=== PATIENT | female | born 1965 | race Caucasian/White ===

== ENCOUNTER 2019-11-10 08:22 | Emergency (ER) | payer OTHER, SELFPAY ==
--- NOTE | 2019-11-10 09:01 | ED.URI ---
HPI - URI/Sore Throat General Chief Complaint: Upper Respiratory Infection Stated Complaint: Cold/Cough Time Seen by Provider: 11/10/19 09:01 Source: patient and RN notes reviewed History of Present Illness HPI Narrative: Patient is a 54-year-old female that presents the urgent care with complaints of cold and cough for 5 days. Patient states that the chest congestion and upper airway congestion started last night and she has been using Advair and her albuterol inhaler as needed for wheezing and cough. Denies any fever, nausea, vomiting. Patient is also used NyQuil without much relief. No other acute complaints. No acute distress noted. Patient read the plan of care. Related Data Home Medications Medication Instructions Recorded Confirmed albuterol sulfate 1 inh INHALATION QID PRN 11/10/19 11/10/19 fluticasone propion-salmeterol 1 inh INHALATION Q12H 11/10/19 11/10/19 [Advair Diskus] Allergies Allergy/AdvReac Type Severity Reaction Status Date / Time adhesive Allergy Unknown Rash Unverified 11/10/19 09:17 venom-wasp Allergy Unknown Unknown Verified 11/10/19 09:17 Review of Systems Review of Systems: Narrative: CONSTITUTIONAL: Denies fever, chills, or sweats. EYES: Denies visual changes, redness, or discharge. ENT: Reports of sinus congestion and postnasal drainage CARDIOVASCULAR: Denies chest pain, palpitations, or edema. RESPIRATORY: Reports of cough with intermittent wheezing GASTROINTESTINAL: Denies abdominal pain, nausea, vomiting, or diarrhea. GENITOURINARY: Denies dysuria or hematuria. SKIN: Denies rash or itching. MUSCULOSKELETAL: Denies back pain, joint pain, or myalgia. NEUROLOGIC: Denies headache, numbness, or weakness. All other systems reviewed are negative, except as documented in HPI. [facility] Family History Family History (Updated 04/04/18 @ 07:57 by DOCTOR UNKNOWN) Mother Diabetes mellitus Hypertension Family history of cardiovascular disease Family history of cardiac disorder Family history of Parkinson's disease Family history of atrial fibrillation Father Hypertension Grandparent Malignant neoplasm of prostate Family history of malignant neoplasm of ovary Social History Social History Smoking status: Never smoker Alcohol intake: current Comments At the time of my signature, I reviewed and agree with the nursing past medical, surgical, social, and family history. There is no relevant family history pertinent to the patient complaint. Exam Narrative: Exam Narrative: GENERAL: This is a well-nourished, well-developed patient, in no apparent distress. HEAD: normocephalic, atraumatic. EYES: PERRL. Sclera clear/white. Vision is grossly intact. EARS: External ears normal, auditory canals clear and without drainage, TMs normal without perforation. Hearing grossly intact. NOSE: External nose normal with no obvious nasal discharge, nares without redness, clear rhinorrhea. THROAT: Mucous membranes moist, posterior pharynx clear. Mild postnasal drainage NECK: Neck supple CARDIOVASCULAR: Regular rate and rhythm without murmurs, gallops, or rubs. RESPIRATORY: Clear to auscultation. Breath sounds equal bilaterally. No wheezes, rales, or rhonchi. SKIN: warm, intact with no suspicious lesions or rash, good texture and turgor. NEURO: awake, alert, and oriented to person, place and time. There were no obvious focal neurologic abnormalities. EXTREMITIES: No clubbing, cyanosis, or edema. Course Vital Signs Vital signs: Vital Signs Temperature 99.3 F 11/10/19 09:03 Pulse Rate 94 11/10/19 09:03 Respiratory Rate 18 11/10/19 09:03 Blood Pressure 137/83 11/10/19 09:03 Pulse Oximetry 100 11/10/19 09:03 Temperature 99.3 F 11/10/19 09:03 Pulse Rate 94 11/10/19 09:03 Respiratory Rate 18 11/10/19 09:03 Blood Pressure 137/83 11/10/19 09:03 Pulse Oximetry 100 11/10/19 09:03 Reviewed MDM - URI/Sore Throat MDM Narrative Medical decision making narrativ
[2019-11-10 09:03] VITALS: BP 137/83; PULSE 94; RESP 18; TEMP 37.4; O2SAT 100
== END 2019-11-10 09:25 | disposition home or self-care (01) ==
PROVIDERS: Emergency Provider Nurse Practitioner Family; PCP Family Medicine
DX: J40 Bronchitis, not specified as acute or chronic (principal); J45.909 Unspecified asthma, uncomplicated; E06.3 Autoimmune thyroiditis
CPT/HCPCS: 99213; G0463

== ENCOUNTER → 2020-04-22 12:18 | Outpatient (CLI) | payer OTHER, SELFPAY ==
--- NOTE | ~2020-04-22 | DEXA_ITS ---
Bone Density Report Name: Lilly Cooper Age: 55 Sex: Female Ethnicity: White Date of : 1965 Indication: postmenopausal; screening for osteoporosis; asthma or emphysema; hysterectomy; Referring Provider: GIOVANI THOMAS Study: Bone densitometry was performed. Exam Date: April 22, 2020 Accession number: [id number] Bone Density: Region BMD T-score Z-score Classification AP Spine (L1-L4) 0.864 -1.7 -0.6 Osteopenia Femoral Neck (Left) 0.662 -1.7 -0.6 Osteopenia Total Hip (Left) 0.740 -1.7 -1.0 Osteopenia Femoral Neck (Right) 0.673 -1.6 -0.5 Osteopenia Total Hip (Right) 0.735 -1.7 -1.0 Osteopenia Total Hip Mean 0.738 -1.7 -1.0 Osteopenia World Health Organization criteria for BMD impression classify patients as: Normal (T-score at or above -1.0), Osteopenia (T-score between -1.0 and -2.5), or Osteoporosis (T-score at or below -2.5). 10-year Fracture Risk(1): Major Osteoporotic Fracture 6.6% Hip Fracture 0.5% Reported Risk Factors: [place] (), Neck BMD=0.662, BMI=31.5 (1) FRAX(R) Version 3.08. Fracture probability calculated for an untreated patient. Fracture probability may be lower if the patient has received treatment. Clinical Information Provided by Patient: Has used the following medications: Vitamin D, multi vit Has the following medical conditions: Asthma or Emphysema, Hysterectomy Patient maximum height was 62 Menopause Age: 40 Does not regularly consume dairy products Drinks caffeinated beverages Onset of menses at age 12 Number of children 0 Impression: The patient has low bone mass, based on the Total Spine T-score. The patient has an estimated ten-year risk of hip fracture of 0.5% and an estimated ten-year risk of major fracture of 6.6%, based on the WHO FRAX algorithm. Discussion: BONE DENSITY IS LOW AT ONE OR MORE SKELETAL SITES. This patient's lowest T-score is low at one or more skeletal sites. It meets the World Health Organization's (WHO) criteria for ?low bone mass? (T-score between -1.0 and -2.5). The patient's 10-year risk of fracture as calculated by FRAX is less than the threshold where pharmacological therapy is recommended by the National Osteoporosis Foundation (NOF). However, all treatment decisions require clinical judgment and consideration of individual patient factors, including patient preferences, comorbidities, previous drug use, risk factors not captured in the FRAX model (e.g., frailty, falls, vitamin D deficiency, increased bone turnover, interval significant decline in bone density) and possible under or overestimation of fracture risk by FRAX. The patient should follow a healthful lifestyle (good nutrition with adequate calcium and vitamin D, and appropriate weight-bearing exercise). Follow-Up: Consider repeating this study in 2 to 3 year
--- NOTE | ~2020-04-22 | MM_ITS ---
EXAMINATION: MM screening [place] BI w carie HISTORY: Screening TECHNIQUE: Craniocaudal and mediolateral oblique 3-D tomosynthesis images were obtained and synthetic 2-D images were generated. CAD analysis was submitted and interpreted. COMPARISON: Comparison to multiple prior studies sequentially, with oldest reviewed study dated 03/2013. BREAST PARENCHYMAL COMPOSITION: There are scattered areas of fibroglandular density. FINDINGS: There is no evidence of suspicious mass, calcification, or architectural distortion to sugg est malignancy in either breast. There has been no suspicious interval change. IMPRESSION: 1. No mammographic evidence of malignancy. 2. Recommend routine screening mammography in one year. BI-RADS Category 1: Negative Reviewed, dictated and finalized at location A.
== END ==
PROVIDERS: Visit Provider Family Medicine
DX: Z12.31 Encounter for screening mammogram for malignant neoplasm of breast (principal); Z78.0 Asymptomatic menopausal state; M85.89 Other specified disorders of bone density and structure, multiple sites
CPT/HCPCS: 77063; 77067; 77080

== ENCOUNTER 2020-06-05 01:00 | Outpatient (CLI) | payer OTHER, SELFPAY ==
[2020-06-05 18:28] LABS: SARS-CoV-2 RNA PCR Negative
== END 2020-06-05 01:01 | disposition home or self-care (01) ==
LOC: ANHCOVIDDT 01:00
PROVIDERS: PCP Family Medicine; Visit Provider Internal Medicine Gastroenterology
DX: Z20.828 Contact with and (suspected) exposure to other viral communicable diseases (principal)
CPT/HCPCS: 87635; C9803; U0003

== ENCOUNTER 2020-06-07 03:45 | Day surgery (SDC) | payer OTHER, SELFPAY ==
[2020-05-29 14:17] VITALS: BMI 30.2
[2020-06-07 07:54] VITALS: BP 122/84; PULSE 73; RESP 16; TEMP 36.2; O2SAT 99; BMI 30.9
--- NOTE | 2020-06-07 08:06 | PM.HPGS ---
History of Present Illness History of Present Illness Consent: Risks, benefits, and alternatives have been discussed and questions answered. Patient agrees to proceed with procedure. Chief complaint: Neoplasm Screening Narrative: Lilly Cooper is a 55 year old female here for colon cancer screening [facility] Past Medical History Medical History Calculus of ureter Carpal tunnel syndrome Cubital tunnel syndrome Endometriosis, site unspecified FH: stroke Family History Family History Mother Diabetes mellitus Hypertension Family history of cardiovascular disease Family history of cardiac disorder Family history of Parkinson's disease Family history of atrial fibrillation Father Hypertension Grandparent Malignant neoplasm of prostate Family history of malignant neoplasm of ovary Social History Social History Smoking status: Never smoker Alcohol intake: current Drinks per week: 3 Substance use: never Substance use type: does not use Living arrangements: alone Spiritual care concerns: No Meds Home Medications and Allergies Home Medications Medication Instructions Recorded Confirmed Type levothyroxine 88 mcg tablet 88 mcg PO DAILY #90 tablet 06/04/20 06/07/20 Rx Allergies Allergy/AdvReac Type Severity Reaction Status Date / Time adhesive Allergy Unknown Rash Verified 06/07/20 07:50 venom-wasp Allergy Unknown Difficulty Verified 06/07/20 07:50 Breathing Vital Signs Vital Signs - 24 hr 06/07/20 07:54 Temperature 36.2 C L Pulse Rate 73 Respiratory Rate 16 Blood Pressure 122/84 Pulse Oximetry 99 Exam Resp: Auscultation: clear to auscultation bilaterally Cardio: Rate: regular rate Rhythm: regular rhythm GI: GI Palp: Yes Soft to palpation and No Tenderness to palpation present (GI) Assessment and Plan Assessment and plan (1) Colon cancer screening: Code(s): Z12.11 - Encounter for screening for malignant neoplasm of colon Status: Acute Assessment and Plan: Colonoscopy with possible biopsy or polypectomy or cautery or injection of substances.
[2020-06-07] MEDS: LACTATED RINGERS 1,000 ML 150 ML IV CONT (08:14)
--- NOTE | 2020-06-07 08:50 | WPDANESEPPF ---
Anes - Initial Pre Proc Eval Procedure: Operation Date: 06/07/20 09:00 Proposed Procedures p Screening Colonoscopy - Martinez Gordon MD Date/Time: 06/07/20 08:50 Surgeon: Martinez Gordon MD Pre Op Diagnosis: Neoplasm Screening Patient Data Age: 55 Gender: F Height: 5 ft 2 in Weight: 76.8 kg Last Vital Signs Temp 97.2 F L 06/07/20 07:54 Pulse 73 06/07/20 07:54 Resp 16 06/07/20 07:54 BP 122/84 06/07/20 07:54 Pulse Ox 99 06/07/20 07:54 Allergies Allergy/AdvReac Type Severity Reaction Status Date / Time adhesive Allergy Unknown Rash Verified 06/07/20 07:50 venom-wasp Allergy Unknown Difficulty Verified 06/07/20 07:50 Breathing Home Medications Medication Instructions Recorded Confirmed Type levothyroxine 88 mcg tablet 88 mcg PO DAILY #90 tablet 06/04/20 06/07/20 Rx Patient hx anesthesia problems: none Family hx anesthesia problems: none PMFSH Past Medical History Medical History (Updated 06/07/20 @ 08:49 by Say Guillen MD) Calculus of ureter Carpal tunnel syndrome Cubital tunnel syndrome Endometriosis, site unspecified FH: stroke Hypothyroid Family History Family History Mother Diabetes mellitus Hypertension Family history of cardiovascular disease Family history of cardiac disorder Family history of Parkinson's disease Family history of atrial fibrillation Father Hypertension Grandparent Malignant neoplasm of prostate Family history of malignant neoplasm of ovary Social History Social History Smoking status: Never smoker Alcohol intake: current Drinks per week: 3 Substance use: never Substance use type: does not use Living arrangements: alone Spiritual care concerns: No Anes - Eval Final PreProcedure Day of Procedure 06/07/20 08:50 Patient weight: overweight Heart: regular rate and rhythm Lungs: clear to auscultation Airway: Mallampati scale class II Neurological: alert and oriented Last oral intake: >/= 8 hours ASA classification: II Emergent: no Anesthetic plan: proceed Anesthesia type and monitoring: general GIVS and standard monitoring Informed Consent: The patient's anesthetic plan and its attendant risks and benefits were discussed with the patient/family/POA. Questions were solicited and answers provided to the satisfaction of the patient/family/POA.
[2020-06-07] MEDS: SIMETHICONE ORAL SUSPENSION 20 MG/0.3 ML 30 ML BOTTLE 0.6 ML IRRIGATION (09:06)
[2020-06-07 09:14] VITALS: BP 83/47; PULSE 82; RESP 22; O2SAT 100
[2020-06-07 09:24] VITALS: BP 103/63; PULSE 73; RESP 22; O2SAT 100
[2020-06-07 09:34] VITALS: BP 118/73; PULSE 67; RESP 22; O2SAT 100
== END 2020-06-07 09:50 | disposition home or self-care (01) ==
PROVIDERS: PCP Family Medicine; Visit Provider Internal Medicine Gastroenterology
PROC: 0DJD8ZZ Inspection of Lower Intestinal Tract, Via Natural or Artificial Opening Endoscopic (ICD-10-PCS; CPT 45378; principal; 2020-06-07 09:00)
DX: Z12.11 Encounter for screening for malignant neoplasm of colon (principal); K63.5 Polyp of colon; E03.9 Hypothyroidism, unspecified
CPT/HCPCS: 45380; 88305; J2704; J7120

== ENCOUNTER 2020-09-11 06:54 | Outpatient (NON) | payer OTHER, SELFPAY ==
[2020-09-11 19:55] LABS: SARS-CoV-2 RNA PCR Positive
== END 2020-09-11 06:55 ==
PROVIDERS: PCP Family Medicine; Visit Provider Physician Assistant Medical
DX: U07.1 COVID-19 (principal)
CPT/HCPCS: 87635; C9803; U0003

== ENCOUNTER → 2021-05-21 14:28 | Outpatient (CLI) | payer OTHER, SELFPAY ==
--- NOTE | ~2021-05-21 | MM_ITS ---
EXAMINATION: MM screening [place] BI w carie HISTORY: Screening TECHNIQUE: Craniocaudal and mediolateral oblique 3-D tomosynthesis images were obtained and synthetic 2-D images were generated. CAD analysis was submitted and interpreted. COMPARISON: Comparison to multiple prior studies sequentially, with oldest reviewed study dated 10/08. BREAST PARENCHYMAL COMPOSITION: There are scattered areas of fibroglandular density. FINDINGS: There is no evidence of suspicious mass, calcification, or architectural distortion to sugg est malignancy in either breast. There has been no suspicious interval change. IMPRESSION: 1. No mammographic evidence of malignancy. 2. Recommend routine screening mammography in one year. BI-RADS Category 1: Negative Reviewed, dictated and finalized at location A.
== END ==
PROVIDERS: PCP Family Medicine; Visit Provider Family Medicine
DX: Z12.31 Encounter for screening mammogram for malignant neoplasm of breast (principal)
CPT/HCPCS: 77063; 77067

== ENCOUNTER 2021-11-25 08:54 | Outpatient (CLI) | payer OTHER, SELFPAY ==
--- NOTE | 2021-11-25 | EST_ITS ---
Patient Info Name: Lilly Cooper Age: 56 years : 1965 Gender: Female Ht: 62 in Wt: 167 lbs BSA: 1.85 m2 HR: 70 bpm BP: 140 / 77 mmHg Heart Rhythm: Sinus Rhythm Exam Date: 11/25/2021 9:43 AM Exam Location: [facility] Stress Patient Status: Outpatient Admit Date: 11/25/2021 Staff Ordering Physician: JasonLani MD Attending Provider: JasonLani MD Exercise Technologist: Zonia Friedman CT Exam Type: CA stress test treadmill Study Info Indications R07.9 - Chest pain, unspecified A regadenoson stress test was performed. Summary 1. No arrhythmias were observed during the examination. 2. No abnormal ST/T wave changes with exercise. 3. Hypotensive blood pressure response during stress. 4. Stress-induced chest tightness resolved spontaneously. 5. Mills treadmill score +4 indicating intermediate risk for adverse cardiovascular events the next 5 years. Clinical correlation advised. Consider additional associated imaging if clinically indicated to improve sensitivity and specificity for myocardial ischemia. 6. Exercise capacity very good at >10 METS. Protocol: [place]on Stress ECG Details Stage: REST Duration (min): 1 min : 6 sec Speed (mph): 0.0 Grade (%): 0 HR (bpm): 75 SBP (mmHg): 140 DBP (mmHg): 77 METS: --- Stage: REST Duration (min): 5 min : 23 sec Speed (mph): 0.0 Grade (%): 0 HR (bpm): 74 SBP (mmHg): 140 DBP (mmHg): 77 METS: --- Stage: STAGE 1 Duration (min): 1 min : 0 sec Speed (mph): 1.7 Grade (%): 10 HR (bpm): 106 SBP (mmHg): 140 DBP (mmHg): 77 METS: --- Stage: STAGE 1 Duration (min): 2 min : 0 sec Speed (mph): 1.7 Grade (%): 10 HR (bpm): 111 SBP (mmHg): 140 DBP (mmHg): 77 METS: --- Stage: STAGE 1 Duration (min): 3 min : 0 sec Speed (mph): 1.7 Grade (%): 10 HR (bpm): 118 SBP (mmHg): 155 DBP (mmHg): 92 METS: --- Stage: STAGE 2 Duration (min): 1 min : 0 sec Speed (mph): 2.5 Grade (%): 12 HR (bpm): 131 SBP (mmHg): 155 DBP (mmHg): 92 METS: --- Stage: STAGE 2 Duration (min): 2 min : 0 sec Speed (mph): 2.5 Grade (%): 12 HR (bpm): 134 SBP (mmHg): 160 DBP (mmHg): 86 METS: --- Stage: STAGE 2 Duration (min): 3 min : 0 sec Speed (mph): 2.5 Grade (%): 12 HR (bpm): 137 SBP (mmHg): 160 DBP (mmHg): 86 METS: --- Stage: STAGE 3 Duration (min): 1 min : 0 sec Speed (mph): 3.4 Grade (%): 14 HR (bpm): 149 SBP (mmHg): 160 DBP (mmHg): 86 METS: --- Stage: STAGE 3 Duration (min): 2 min : 0 sec Speed (mph): 3.4 Grade (%): 14 HR (bpm): 157 SBP (mmHg): 141 DBP (mmHg): 85 METS: --- Stage: STAGE 3 Duration (min): 2 min : 59 sec Speed (mph): 4.2 Grade (%): 16 HR (bpm): 159 SBP (mmHg): 145 DBP (mmHg): 89 METS: --- Stage: RECOVERY Duration (min): 1 min : 0 sec Spe
== END 2021-11-25 08:55 | disposition home or self-care (01) ==
PROVIDERS: PCP Family Medicine; Visit Provider Internal Medicine Endocrinology, Diabetes & Metabolism
DX: R07.89 Other chest pain (principal)
CPT/HCPCS: 93017; J2785

== ENCOUNTER 2023-09-27 11:09 | Emergency (ER) | payer OTHER, SELFPAY ==
[2023-09-27 11:20] VITALS: BP 138/78; PULSE 86; RESP 16; TEMP 36.8; O2SAT 100
--- NOTE | 2023-09-27 11:53 | ED.SKABFB ---
HPI - Skin/Abscess/Foreign Bdy General Chief complaint: Skin/Abscess/Foreign Body Stated complaint: rash Time Seen by Provider: 09/27/23 11:53 Source: patient Mode of arrival: ambulatory Limitations: no limitations History of Present Illness HPI narrative: 50-year-old female presented for complaint of rash and skin irritation to the chiqui area intermittently for 1 month. She used Lotrimin cream to the site without relief. Endorses mild itching. States sites burn after scratching. She denies vaginal discharge, history of genital HSV, dysuria, hematuria, or any other locations of rash. Currently reports cold sore to lower lip. Related Data Allergies Allergy/AdvReac Type Severity Reaction Status Date / Time adhesive Allergy Unknown Rash Verified 07/21/23 15:41 venom-wasp Allergy Unknown Difficulty Verified 07/21/23 15:41 Breathing Review of Systems Review of Systems: CONSTITUTIONAL: Denies body aches, fever, chills, or sweats. EYES: Denies visual changes, redness, or discharge. ENT: Denies rhinorrhea, congestion CARDIOVASCULAR: Denies chest pain, palpitations, or edema. RESPIRATORY: Denies cough or dyspnea. GASTROINTESTINAL: Denies abdominal pain, nausea, vomiting, or diarrhea. SKIN: reports skin irritation to chiqui area MUSCULOSKELETAL: Denies back pain, joint pain, or myalgia. NEUROLOGIC: Denies headache, numbness, tingling, or weakness. [facility] Past Medical History Medical History Calculus of ureter Carpal tunnel syndrome Cubital tunnel syndrome Endometriosis, site unspecified FH: stroke Hypothyroid Family History Family History Mother Diabetes mellitus Hypertension Family history of cardiovascular disease Family history of cardiac disorder Family history of Parkinson's disease Family history of atrial fibrillation Father Hypertension Grandparent Malignant neoplasm of prostate Family history of malignant neoplasm of ovary Social History Social History Smoking status: Never smoker Alcohol intake: current Alcohol use details: occasionally Substance use: never Substance use type: does not use Lack of Transportation: No Lack of Food: Sometimes True Current Housing: I Have Housing Concerned About Future Housing: No Difficulty Paying Gas/Electric Bills: No Difficulty Paying for Meds: No Currently Unemployed: No Education: Bachelor's Degree Difficulty w/ Childcare or Family Care: No Living arrangements: alone Spiritual care concerns: No Comments At time of signature, I have reviewed and agree with nursing past medical, surgical, social and family history unless otherwise noted. Please see nursing chart for further information. There is no relevant family history pertinent to the presenting complaint Exam Narrative: GENERAL: Well-appearing HEAD: Normocephalic, atraumatic. EYES: conjunctivae clear, and EOMI. ENT: Mucous membranes moist. Oropharynx without edema, erythema or lesions. NECK: Supple. No lymphadenopathy CHEST: Clear to auscultation. HEART: Regular rate and rhythm. : scattered erythematous flat/dried round lesions to external labia; more to the right labia, nontender, no active drainage. No external vaginal discharge or surrounding erythema. SKIN: Warm, dry. NEURO: Alert and oriented x3. Course Course Emergency Course: Patient is aware of diagnosis, understands and agrees to treatment plan. Anticipatory guidance given. Patient agrees to follow-up as directed and is aware of reasons to seek care at the emergency department. Portions of this record may have been created with voice recognition software Level of Care: Express Care Visit Vital Signs Vital signs: Vital Signs Temperature 98.3 F 09/27/23 11:20 Pulse Rate 86 09/27/23 11:20 Respiratory Ra
== END 2023-09-27 12:17 | disposition home or self-care (01) ==
PROVIDERS: Emergency Provider Nurse Practitioner Family; PCP Family Medicine
DX: N89.8 Other specified noninflammatory disorders of vagina (principal); N80.9 Endometriosis, unspecified; E03.9 Hypothyroidism, unspecified
CPT/HCPCS: 99213; G0463

== ENCOUNTER 2023-12-22 12:38 | Outpatient (CLI) | payer OTHER, SELFPAY ==
--- NOTE | ~2023-12-22 | MM_ITS ---
EXAMINATION: MM screening [place] BI w carie HISTORY: Screening TECHNIQUE: Craniocaudal and mediolateral oblique 3-D tomosynthesis images were obtained and synthetic 2-D images were generated. CAD analysis was submitted and interpreted. COMPARISON: 05/21/2021 BREAST PARENCHYMAL COMPOSITION: Not dense: There are scattered areas of fibroglandular density. FINDINGS: There is developing asymmetry in the upper outer quadrant of the left breast anteriorly. Th e right breast is stable without evidence for malignancy. IMPRESSION: 1. Developing left breast asymmetry. 2. Additional mammographic views and possible breast ultrasound are recommended. BI-RADS Category 0: Incomplete: Needs additional imaging evaluation. Reviewed, dictated and finalized at location A. IMPRESSION: 1. Developing left breast asymmetry. 2. Additional mammographic views and possible breast ultrasound are recommended . BI-RADS Category 0: Incomplete: Needs additional imaging evaluation.
== END 2023-12-22 12:39 ==
LOC: MICIMG 12:39
PROVIDERS: PCP Family Medicine; Visit Provider Family Medicine
DX: Z12.31 Encounter for screening mammogram for malignant neoplasm of breast (principal); N64.89 Other specified disorders of breast
CPT/HCPCS: 77063; 77067

== ENCOUNTER 2023-12-23 12:43 | Outpatient (CLI) | payer OTHER, SELFPAY ==
--- NOTE | ~2023-12-23 | DEXA_ITS ---
Bone Density Report Name: NOVA USLLIVAN Age: 58 Sex: Female Ethnicity: White Date of : 1965 Indication: osteopenia; asthma or emphysema; hysterectomy;postmenopausal Referring Provider: GIOVANI THOMAS Study: Bone densitometry was performed. Exam Date: December 23, 2023 Accession number: [id number] Bone Density: Region BMD T-score Z-score Classification AP Spine (L1-L4) 0.879 -1.5 -0.2 Osteopenia Femoral Neck (Left) 0.630 -2.0 -0.7 Osteopenia Total Hip (Left) 0.750 -1.6 -0.7 Osteopenia Femoral Neck (Right) 0.672 -1.6 -0.4 Osteopenia Total Hip (Right) 0.741 -1.6 -0.8 Osteopenia Total Hip Mean 0.746 -1.6 -0.8 Osteopenia World Health Organization criteria for BMD impression classify patients as: Normal (T-score at or above -1.0), Osteopenia (T-score between -1.0 and -2.5), or Osteoporosis (T-score at or below -2.5). 10-year Fracture Risk(1): Major Osteoporotic Fracture 8.6% Hip Fracture 1.0% Reported Risk Factors: [place] (), Neck BMD=0.630, BMI=30.3 (1) FRAX(R) Version 3.08. Fracture probability calculated for an untreated patient. Fracture probability may be lower if the patient has received treatment. Previous Exams: Region Exam Age BMD T-score BMD Change BMD Change Date g/cm2 vs Baseline vs Previous AP Spine(L1-L4) 12/23/2023 58 0.879 -1.5 0.015 0.015 04/22/2020 55 0.864 -1.7 Total Hip(Left) 12/23/2023 58 0.750 -1.6 0.010 0.010 04/22/2020 55 0.740 -1.7 Total Hip(Right) 12/23/2023 58 0.741 -1.6 0.006 0.006 04/22/2020 55 0.735 -1.7 *Denotes significance at 95% confidence level, LSC for AP Spine = 0.022 g/cm2, LSC for Total Hip = 0.027 g/cm2 Clinical Information Provided by Patient: Has used the following medications: Vitamin D Has the following medical conditions: Asthma or Emphysema, Hysterectomy Patient maximum height was 62 Menopause Age: 40 Does not regularly consume dairy products Drinks caffeinated beverages Onset of menses at age 12 Number of children 0 Impression: The patient has low bone mass, based on the Left Femoral Neck T-score. The patient has an estimated ten-year risk of hip fracture of 1% and an estimated ten-year risk of major fracture of 8.6%, based on the WHO FRAX algorithm. No significant bone loss was observed. Discussion: BONE DENSITY IS LOW AT ONE OR MORE SKELETAL SITES. This patient's lowest T-score is low at o
== END 2023-12-23 12:44 ==
LOC: MICIMG 12:44
PROVIDERS: PCP Family Medicine; Visit Provider Family Medicine
DX: Z13.820 Encounter for screening for osteoporosis (principal); M85.88 Other specified disorders of bone density and structure, other site; M85.852 Other specified disorders of bone density and structure, left thigh; M85.851 Other specified disorders of bone density and structure, right thigh
CPT/HCPCS: 77080

== ENCOUNTER 2024-01-24 09:01 | Outpatient (CLI) | payer OTHER, SELFPAY ==
--- NOTE | ~2024-01-24 | MMUS_ITS ---
EXAMINATION: MM diagnostic [place] LT w carie, US breast LT limited HISTORY: Developing left breast asymmetry were demonstrated in the upper outer quadrant of the left b reast anteriorly on December 22, 2023 bilateral screening mammogram TECHNIQUE: Additional 3-D tomosynthesis images of the left breast were performed and synthetic 2-D im ages were generated. CAD analysis was submitted and interpreted. High resolution upper outer quadrant left breast ultrasound was performed. COMPARISON: December 22, 2023 bilateral screening mammogram FINDINGS: MAMMOGRAPHIC FINDINGS: No suspicious mass or architectural distortion, bony calcification, skin thickening or retraction is noted. ULTRASOUND: 12:00 5 cm from nipple: Circumscribed 3.3 x 3.2 x 3.3 mm hypoechoic area with central linear fatty de nsity, possibly a small lymph node. Six-month follow-up ultrasound imaging is recommended. 3:00 4 cm from nipple: Well-circumscribed oval hypoechoic area measuring approximately 3 x 6.6 x 6.7 mm, without internal va scularity significant posterior features. Six-month follow-up ultrasound examination is recommended. IMPRESSION: 1. Probable benign findings 2. Six-month diagnostic left mammogram and left breast ultrasound follow-up are recommended BI-RADS category 3, probably benign findings. Reviewed, dictated and finalized at location A. IMPRESSION: 1. Probable benign findings 2. Six-month diagnostic left mammogram and left breast ultrasound follow-up are recommended BI-RADS category 3, probably benign findings.
== END 2024-01-24 09:02 ==
LOC: MICIMG 09:02
PROVIDERS: PCP Family Medicine; Visit Provider Family Medicine
DX: R92.8 Other abnormal and inconclusive findings on diagnostic imaging of breast (principal)
CPT/HCPCS: 76642; 77061; 77065; G0279

== ENCOUNTER 2024-07-11 11:45 | Outpatient (CLI) | payer OTHER, SELFPAY ==
--- NOTE | ~2024-07-11 | XR_ITS ---
XR hand RT min 3V Ordering provider: Randall French APRN History: . fall 4 days ago pain in bilateral hand/ wrist pain . Comparison: None. FINDINGS: BONES: No acute fracture or dislocation. JOINT SPACES: Normal. SOFT TISSUES: Normal. IMPRESSION: No acute osseous abnormality right hand. Reviewed, dictated and finalized at location A.
--- NOTE | ~2024-07-11 | XR_ITS ---
XR wrist RT w scaphoid Ordering provider: Randall French APRN History: . fall 4 days ago pain in bilateral hand/ wrist pain . Comparison: None. FINDINGS: BONES: No acute fracture or dislocation. No definite scaphoid fracture. JOINT SPACES: Normal. SOFT TISSUES: Normal. IMPRESSION: No acute osseous abnormality right wrist. Reviewed, dictated and finalized at location A.
--- NOTE | ~2024-07-11 | XR_ITS ---
XR wrist LT w scaphoid Ordering provider: Randall French APRN History: . fall 4 days ago pain in bilateral hand/ wrist pain . Comparison: None. FINDINGS: BONES: No acute fracture or dislocation. No definite scaphoid fracture. JOINT SPACES: Well maintained. SOFT TISSUES: Normal. IMPRESSION: No acute osseous abnormality left wrist. Reviewed, dictated and finalized at location A.
--- NOTE | ~2024-07-11 | XR_ITS ---
XR hand LT min 3V Ordering provider: Randall French APRN History: . fall 4 days ago pain in bilateral hand/ wrist pain . Comparison: None. FINDINGS: BONES: No acute fracture or dislocation. JOINT SPACES: Well maintained. SOFT TISSUES: Unremarkable. IMPRESSION: No acute osseous abnormality left hand. Reviewed, dictated and finalized at location A.
== END 2024-07-11 11:46 | disposition home or self-care (01) ==
LOC: GOSHIMG 11:46
PROVIDERS: PCP Family Medicine; Visit Provider Student in an Organized Health Care Education/Training Program
DX: M79.641 Pain in right hand (principal); M79.642 Pain in left hand; M25.531 Pain in right wrist; M25.532 Pain in left wrist
CPT/HCPCS: 73110; 73130

== ENCOUNTER 2024-07-26 10:35 | Outpatient (CLI) | payer OTHER, SELFPAY ==
[2024-07-28 13:55] LABS: Kit Draw Collected
== END 2024-07-26 10:36 | disposition home or self-care (01) ==
LOC: ANHGOSHLAB 10:37
PROVIDERS: PCP Family Medicine; Visit Provider Family Medicine
DX: E03.9 Hypothyroidism, unspecified (principal); R73.03 Prediabetes; Z78.0 Asymptomatic menopausal state
CPT/HCPCS: 36415

== ENCOUNTER 2024-08-15 08:39 | Outpatient (CLI) | payer OTHER, SELFPAY ==
--- NOTE | ~2024-08-15 | MMUS_ITS ---
EXAMINATION: MM diagnostic [place] LT w carie, US breast LT limited HISTORY: Follow-up left breast mass TECHNIQUE: Additional 3-D tomosynthesis images of the left breast were performed and synthetic 2-D im ages were generated. CAD analysis was submitted and interpreted. High resolution Limited left breast ultrasound was performed. COMPARISON: Comparison to multiple prior studies sequentially, with oldest reviewed study dated 03/02. BREAST PARENCHYMAL COMPOSITION: Not dense: There are scattered areas of fibroglandular density. FINDINGS: MAMMOGRAPHIC FINDINGS: The left breast is stable. No suspicious masses, calcifications or architectural distortion in the le ft breast to suggest malignancy. ULTRASOUND: Limited left breast ultrasound: At 12:00, 5 cm from the nipple there is an oval hypoechoic 5 mm mass without significant change from prior examination allowing for differences of technique. No other dis crete masses are identified. There appears to be a small echogenic hilum and the mass, consistent wit h intramammary lymph node. IMPRESSION: 1. No evidence for malignancy in the left breast. Benign finding. 2. . Routine yearly screening mammogram and regular clinical breast examination are recommended. BI-RADS Category 2: Benign finding(s). Reviewed, dictated and finalized at location B. NT [facility]ILDC[facility] PROVIDER IMPRESSION: 1. No evidence for malignancy in the left breast. Benign finding. 2. . Routine yearly screening mammogram and regular clinical breast examination are recommended. BI-RADS Category 2: Benign finding(s).
== END 2024-08-15 08:40 | disposition home or self-care (01) ==
PROVIDERS: PCP Family Medicine; Visit Provider Nurse Practitioner Family
DX: N63.21 Unspecified lump in the left breast, upper outer quadrant (principal)
CPT/HCPCS: 76642; 77061; 77065; G0279

== ENCOUNTER 2024-09-11 15:15 | Outpatient (RCR) | payer OTHER, SELFPAY ==
--- NOTE | 2024-08-08 14:55 | OTOPEVAL1 ---
Assessment and note entered by Mauricio Pollack, NANCIE/Marie, CHT Evaluation Information Assessment Status Evaluation Diagnosis Stiffness of unspecified joint, Pain in unspecified hand ICD-10 Condition Codes (OT) M25.641,M25.642,M25.631,M25.632,M79.641,M79.642, M25.531 Subjective Information Patient fell onto her hands/palms about 3-4 weeks ago and she is reporting persistent hand/finger pain, stiffness, and weakness that is limiting her ability to grasp, lift, and carry. For instance she was trying to carry a plate of apple slices and she had severe hand pain with this. 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 Pain with tying shoes, getting dressed, and taking a shower. She reports she lives alone so she does what she has to do to get her ADLs done, but she is experiencing high levels of pain on a daily basis. She states her pain is typically low first thing in the morning and progressively gets worse as she uses her hands throughout the day. Reported Pain Level Pain Score 8: Self Report Assessment OT Clinical Summary Patient referred to OT with bilateral hand pain after a fall about 4 weeks ago. X-rays were negative for acute fracture. She presents with pain that is specific to the joints in her hands, indicative of an arthritic flair up. She does not report any paresthesia. Issued active ROM HEP and educated on the use of heat/ice. She is having the most difficulties with a table top fist and a hook fist. She responded well to paraffin treatment today. Continued skilled OT indicated for HEP progression, continued use of modalities, and therapeutic exercise to facilitate reduced pain, improved strength, and return to functional hand use for ADLs Plan of Care Interventions Therapeutic Exercise,Manual Therapy,Therapeutic Activities,Ultrasound,Paraffin OT Services Indicated Yes Treatment Frequency and 1x/week for 5 visits Duration These treatments will address the objective and functional deficits as defined above. The patient will be advanced safely and appropriately in order for the patient to progress towards his/her prior level of function. Additional exercises will be introduced and as well as a comprehensive home exercise program upon discharge, if needed, ?to ensure carryover of functional gains achieved in the clinic. This treatment plan has been reviewed and agreement upon by the patient.
--- NOTE | 2024-08-08 14:56 | OTOPEVAL1 ---
Assessment and note entered by Mauricio Pollack, OTJudy/Marie, CHT Evaluation Information Assessment Status Evaluation Diagnosis Stiffness of unspecified joint, Pain in unspecified hand ICD-10 Condition Codes (OT) M25.641,M25.642,M79.641,M79.642,M25.531 Subjective Information Patient fell onto her hands/palms about 3-4 weeks ago and she is reporting persistent hand/finger pain, stiffness, and weakness that is limiting her ability to grasp, lift, and carry. For instance she was trying to carry a plate of apple slices and she had severe hand pain with this. 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 Pain with tying shoes, getting dressed, and taking a shower. She reports she lives alone so she does what she has to do to get her ADLs done, but she is experiencing high levels of pain on a daily basis. She states her pain is typically low first thing in the morning and progressively gets worse as she uses her hands throughout the day. Reported Pain Level Pain Score 8: Self Report Assessment OT Clinical Summary Patient referred to OT with bilateral hand pain after a fall about 4 weeks ago. X-rays were negative for acute fracture. She presents with pain that is specific to the joints in her hands, indicative of an arthritic flair up. She does not report any paresthesia. Issued active ROM HEP and educated on the use of heat/ice. She is having the most difficulties with a table top fist and a hook fist. She responded well to paraffin treatment today. Continued skilled OT indicated for HEP progression, continued use of modalities, and therapeutic exercise to facilitate reduced pain, improved strength, and return to functional hand use for ADLs Plan of Care Interventions Therapeutic Exercise,Manual Therapy,Therapeutic Activities,Ultrasound,Paraffin OT Services Indicated Yes Treatment Frequency and 1x/week for 5 visits Duration These treatments will address the objective and functional deficits as defined above. The patient will be advanced safely and appropriately in order for the patient to progress towards his/her prior level of function. Additional exercises will be introduced and as well as a comprehensive home exercise program upon discharge, if needed, ?to ensure carryover of functional gains achieved in the clinic. This treatment plan has been reviewed and agreement upon by the patient.
--- NOTE | 2024-08-08 14:56 | OPREHPOC ---
Outpatient Therapy Plan of Care This is a Multidisciplinary Plan of Care that may contain components documented by all disciplines (PT, OT, and ST.) OT Problem 1 OT Problem #1 Knowledge Deficit OT Goal 1 Goal / Goal Update Patient to be independent with instructed materials. Target Visit 5 OT Problem 2 OT Problem #2 Pain OT Goal 1 Goal / Goal Update Patient to progress to 0/10 pain at rest. Target Visit 5 OT Goal 2 Goal / Goal Update Patient to report pain 5/10 at worst during ADLs . Target Visit 5 OT Problem 3 OT Problem #3 Impaired Flexibility OT Goal 1 Goal / Goal Update Patient to be able to make a tabletop with IPs straight and no pain. Target Visit 5 OT Goal 2 Goal / Goal Update Patient to be able to make a hook fist with less than 1 cm gap and no pain. Target Visit 5 OT Problem 4 OT Problem #4 Impaired Strength OT Goal 1 Goal / Goal Update Patient to be able to progress to putty HEP x5 minutes without pain. Target Visit 5
--- NOTE | 2024-09-11 16:04 | OTOPDC ---
Assessment and note entered by Mauricio Pollack, NANCIE/Marie, CHT OT Discharge Summary 09/11/24 Assessment Status Discharge Diagnosis Stiffness of unspecified joint, Pain in unspecified hand ICD-10 Condition Codes (OT) Joint stiffness of right hand M25.641,Joint stiffness of left hand M25.642,Pain in right hand M79.641,Pain in left hand M79.642,Pain in right wrist M25.531 Subjective Information Patient fell onto her hands/palms about 8-9 weeks ago. She has been participating in hand therapy x5 weeks. She reports her pain has shifted . She no longer experiences excruciating pain at the end of her day from hand use, more like hand pain when using her hands. She continues to experience persistent hand/finger pain, stiffness, and weakness that is limiting her ability to grasp, lift, and carry. She reports improvements with being able to patient monitor and open a jar. She reports tying shoes, showers, and dressing has improved also. At best her hands have gotten down to is 3 /10 on the pain scale. She reports she has experienced 8/10 pain after playing a gift passing game with friends with repeated gripping and passing gifts. She reports her hands were swollen after this. She is wearing compression gloves 24 hrs/day except when bathing/washing hands. Hook fist: bilateral hands measure no gap today, improved from 1-1.5 cm gap between finger tips and DPC at the start of care Full fist: WFL, tightness in MCPs, no increased pain, improved from having pain with this at the start of care Lumbricals: WFL, no longer bend in PIPs with lumbrical exercise Thumb Opposition: WFL, thumbs doing well Ab/adduction: no longer experiencing tightness and pain with this exercise Patient is traveling to [place] for 2-5 months in September. Discharging with [facility]. She is seeing a hand MD in [place] to get a referral for more hand therapy while she's there. Reported Pain Level Pain Score 4: Self Report Assessment OT Clinical Summary Patient referred to OT with bilateral hand pain after a fall. X-rays were negative for acute fracture. She presents with pain that is specific to the joints in her hands, indicative of an arthritic flair up. She has made progress with improved ROM, improved comfort with ROM HEP, and improved hand use for light ADLs. She continues to experience sharp increases in hand pain with heavy hand use. She is wearing compression gloves for comfort and reports she cannot go without them . She is currently independent with HEP - ROM and strengthening with putty. We have been unable to progress past the softest putty due to pain. Discharging with HEP today due to patient traveling to stay with family for an extended period of time. She plans to continue hand therapy treatment while she is out of town. Plan of Care OT Services Indicated No
== END 2024-09-12 08:16 | disposition home or self-care (01) ==
LOC: ANHGOSHOT 15:15
PROVIDERS: PCP Family Medicine; Visit Provider Family Medicine
DX: M25.60 Stiffness of unspecified joint, not elsewhere classified (principal); M79.643 Pain in unspecified hand
CPT/HCPCS: 97018; 97110; 97140; 97166; 97530

== ENCOUNTER 2025-07-25 09:10 | Outpatient (CLI) | payer OTHER, SELFPAY ==
--- OUTSIDE RECORDS SUMMARY | 2016-04-08 07:30 | XMS_ITS | Continuity of Care Document ---
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 Name Role Phone Mendel SIMMONS, Delbert Parham Unavailable Allergies, Adverse Reactions, Alerts Substance Reaction Status Criticality adhesive Active No Information Procedures Procedure Date Visual Field Examination(s) SCODI, Posterior Segment Eye Exam & Treatment Office/outpatient Visit, Est Visual Field Examination(s) Office/outpatient Visit, Est Office/outpatient Visit, Est Office/outpatient Visit, Est Office/outpatient Visit, Est Office/outpatient Visit, Est Office/outpatient Visit, Est Office/outpatient Visit, Est Visual Field Examination(s) Office/outpatient Visit, Est SCODI, Posterior Segment Office/outpatient Visit, Est Visual Field Examination(s) Corneal Pachymetry Office/outpatient Visit, New Advance Directives Directive Yes / No Effective Date File Name No Information Encounters Encounter Description Practice Location Reason(s) For Visit Diagnoses Date Provider Providers Copied on Encounter [employer] [facility], [address] [place], [place] [address], [place], [place], [id number], [place] tel:[phone] SEC [place] [facility] Professional Glaucoma (chief complaint) 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 [address] [facility], [facility] [place], [id number], [place]. tel:[phone] Referring Provider: Jamir Ram OD, [facility] [address] [place], [address]. tel:[phone] Office/outpa [place]ient Visit, [facility], [address] [place] [address] [address], [place], [place], [address], [place] tel:[phone] SEC [place] Professional redness (chief complaint) Blurred vision - hazyOPEN-ANGLE GLAUCOMA NOS 7 5 Wankum Delbert. [address] [facility], [facility] [place], [id number], [place]. tel:[phone] Referring Provider: Jamir Ram OD, [facility] [address] [place], [address]. tel:[phone] Office/outpa tient Visit, [facility] [place], [address] [place] [address] [address], [place], [place], [address], [place] tel:[phone] SEC [place] [facility] Professional Swelling OD (chief complaint) Meibomian gland dysfunction 3-201 5 [facility] [address] [facility], [facility] A, [place], [place], [id number], [place]. tel:[phone] Referring Provider: Jamir Ram OD, [facility] [address] [place], [address]. tel:[phone] Office/outpa tient Visit, [facility], [address] [place] [address] [address], [place], [place], [id number], [place] tel:[phone] SEC Jae [place] Professional WIE (chief complaint) Episcleritis 2-201 5 Wankum Delbert. [address] [facility], [address] [place], [id number], [place]. tel:[phone] Referring Provider: Jamir Ram OD, [facility] [address] [place], [address]. tel:[phone] Office/outpa tient Visit, [facility], [address] [place] [address] [address], [place], [place], [address], [place] tel:[phone] [place] Professional Itching (chief complaint) HORDEOLUM INTERNUMEpiscl eritis Rey-2 4-201 4 Wankum Delbert. [address] [facility], [facility] [place], [place], [address], [place]. tel:[phone] Referring Provider: Jamir Ram OD, [facility] [address] [place], [address]. tel:[phone] Office/outpa tient Visit, [facility], [address] [place] [address] [address], [place], [place], [id number], [place] tel:[phone] [place] Professional HORDEOLUM INTERNUM May-3 0-201 4 Wankum Delbert. [address] [facility], [facility] [place], [id number], [place]. tel:[phone] Referring Provider: Jamir Ram OD, [facility] [address] [place], [address]. tel:[phone] Office/outpa tient Visit, [facility], [address] [place] [address] [address], [place], [place], [id number], [place] tel:[phone] [place] EpiscleritisHO RDEOLUM INTERNUM May-0 7-201 4 Wankum Delbert. [address] [facility], [address] [place], [address], [place]. tel:[phone] Referring Provider: Jamir Scheiter OD, [facility] [address] [place], [address]. tel:[phone] Office/outpa tient Visit, [facility], [address] [place] [address] [address], [place], [place], [id number], tel:[phone] SEC [place] Professional SCLERITIS NOS Dec-2 1- 4 Wankum Delbert. [address], [address] [place], [address], [place]. tel:[phone] Referring Provider: Jamir Ram OD, [facility] [address] [place], [address]. tel:[phone] Office/outpa tient Visit, [facility], [address] [place] [address] [address], [place], [place], [address], [place] tel:[phone] [place] CUPPING OF OPTIC DISC Aug-0 2-201 3 Wankum Delbert. [address], [address] [place], [address], [place]. tel:[phone] Referring Provider: Jamir Ram OD, [facility] [address] [place], [address]. tel:[phone] Office/outpa tient Visit, [facility], [address] [place] [address] [address], [place], [place], [id number], [place] tel:[phone] [place] Professional OPEN-ANGLE GLAUCOMA NOSOPTIC DISC ANOMALIESOPEN- ANGLE GLAUCOMA NOS Jul- 2 Wankum Delbert. [address], [address] [place], [address], [place]. tel:[phone] Referring Provider: Jamir Ram OD, [facility] [address] [place], [address]. tel:[phone] Office/outpa tient Visit, [facility], [address] [place] [address] [address], [place], [place], [id number], tel:[phone] SEC Jae CARTER Professional No Information 2 Mendel Mandujano. [address] [employer] [address] [address] [place], [address], . tel:[phone] Referring Provider: Jamir Ram OD, [facility] [address] [place], [address]. tel:[phone] Office/outpa tient Visit, [facility], [facility], [address], [place], [place], [address], tel:[phone] SEC [place] [facility] Professional No Information 2 Mendel Mandujano. [address] [employer] [facility] [place], [place], [id number], [place]. tel:[phone] Referring Provider: Jamir Ram OD, [facility] [address] [place], [address]. tel:[phone] Family History Family Member Type Diagnosis Age At Onset Mother Problem (finding) diabetes melli tus in first degree relative Father Problem (finding) glaucoma Close relative Problem (finding) Diabetes mellitus Problem (finding) Payers Payer name Insurance type Covered democrat ID Joey renoleta(s) [facility] Commercial CI [id number] Social History Type Description Quantity Date Captured Comments Alcohol Use Details 3 beers weekly Caffeine Use Details 1 cup per day Tobacco Use Status No Information Smoking Status Never smoker Sex Female Chief Complaint And Reason For Visit From encounter dated '04/08/2016 13:30'. Glaucoma (chief complaint). Description: The 51 year old female presents for a complete IOP check due to Cupping ou. Patient denies any changes in vision ou. Reason For Referral Reason For Referral No Information History Of Present Illness Encounter Date Complaint History Of Prese nt Illness Glaucoma The 51 year old female presents for a complete IOP check due to Cupping ou. Patient denies any changes in vision ou. redness The 50 year old female presents for a WIE. Patient c/o OD is still red and watering. Patient is using an OTC allergy drop and taking Doxy. Swelling OD The 50 year old female presents for IOP check OD. Patient says outside of eye is feeling swollen OD. Patient using Doxy 50mg 1 po QD and Tobramycin-Dexamethasone BID OD. WIE The 49 year old female presents for a WIE in the right eye. Patient states the inside linning of the right started swelling again started Wednesday. Patient states she used Zylet starting on Wednesday and its getting worse. Itching Patient in for a 1 month follow up hordeolum. Patient is taking Doxy qd po. Patient states ou feeling pretty good but has some itching today. Patient states got stung by a wasp on leg and thinks she might need to see her PCP . 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 Pt reports irritation and soreness OD off and on. MGD discussed advised pt to apply warm compresses and massage eyelids every morning. Tenderness right eyelid, had stye in the past due to MGD. Start Doxy 50 mg QD with 3 refills. OCT ON performed today as baseline. Return to clinic in 1 year for complete exam with 24-2 visual jorgensen and OCT ON or sooner with any problems. Follow up - Return i n 1 year with Delbert Oglesby M.D. for Complete Exam. Blurred vision - haz y - Educational material given Related to Blurred vision - hazy - Discussed dx in de tail with pt. OD pupil appears to be dilated. Color plates and visual jorgensen normal. Start Pred 1% OD QID x1 week then BID x1 week then stop. Erx Pred to [facility]. Return to clinic for follow up visit if OD is still red. Related to See list of assessments above - Return in 2 weeks with Delbert Oglesby M.D. for follow up exam Related to See list of assessments above - Diagnosis discusse d in detail with patient. Continue Doxy x 2 weeks. Start Tobramycin-Dexamethasone ointment x 10 days, rub into the base of the eyelid. Erx ointment to [facility]. Return as needed. Related to Meibomian gland dysfunction - as needed Related to Meibo agb gland dysfunction Episcleritis - Educa tional material given Related to Episcleritis - Discussed diagnosi s in detail with patient. Start Doxy 50 mg 1po QD x 2 weeks. Start Tobramycin-Dexamethasone 1gtt OD QID x5 days, BID x 5 days then stop. [facility] medication to [facility] [place]. Return to clinic in 1 year for complete exam or sooner with any problems. Related to Episcleritis - Return in 1 year w ofelia Oglesby M.D. for Complete Exam Related to Episcleritis - Scleritis OD - mil dly injected. Pt will begin using Prolensa QD OD. RTC as needed. Educational material provided about today's exam. Related to See list of assessments above - RTC as needed Related to See l ist of assessments above - RTC in 1 month Related to See impression: general plan General plan -Hordeo lum internum - Discussed Meibomitis in detail with pt. Pt advised to continue Doxy 50 mg QD and Zylet TID x 5 days then BID x 5 days, then discontinue Zylet, but continue Doxy. RTC in 1 month. Doxy 30 tabs and Zylet sent to [facility]. Educational materials provided:about today's exam. Related to See impression: general plan MGD with small sty r ll nasally - doxy 50mg qd no. 30 with 1 refill Related to Hordeolum internum - 1mth Related to Horde olum internum episcleritis od-eye less red - taper zylet Related to Episcleritis episcleritis od - pr ed 1% qid for 3more days then bid for 4days Educational materials provided to patient. Related to Episcleritis - 1week prn Related to Episc leritis cupping with borderl ine iop and nc in vf - no tx at present and no fh poag Related to Glaucomatous Cupping of the Optic Disc - 6mths-oct Related to Glauc omatous Cupping of the Optic Disc - 6 months w/ VF Related to Open Angle Glaucoma Open Angle Glaucoma, OU - established, stable - will continue to monitor - Discussed dx with pt. OCT done today. Nl IOP. No gtts needed. Will monitor. Related to Open Angle Glaucoma Assessments Type Assessment Date assessment Glaucomatous cupping of optic di sc of both eyes Patient Care Teams Name Effective Dates (start - stop) Status Members No Information
--- NOTE | ~2025-07-25 | MM_ITS ---
EXAMINATION: MM screening [place] [facility] HISTORY: Screening TECHNIQUE: Craniocaudal and mediolateral oblique 3-D tomosynthesis images were obtained and synthetic 2-D images were generated. CAD analysis was submitted and interpreted. COMPARISON: Comparison to multiple prior studies sequentially, with oldest reviewed study dated , 04/20/2019 BREAST PARENCHYMAL COMPOSITION: There are scattered areas of fibroglandular density. FINDINGS: There is no evidence of suspicious mass, calcification, or architectural distortion to suggest malignancy in either breast. IMPRESSION: 1. No mammographic evidence of malignancy. 2. Recommend routine screening mammography in one year. BI-RADS Category 1: Negative Reviewed, dictated and finalized at location B. GRAILS DEVELOPER
--- OUTSIDE RECORDS SUMMARY | 2025-07-25 09:43 | XMS_ITS | Encounter Summary ---
Author Organization [employer] Address 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 Gender Identity Not on file Sexual Orientation Not on file documented as of this encounter Plan of Treatment Not on file documented as of this encounter Procedures Procedure Name Priority Date/Time Associated Diagnosis Comments CBC WITH DIFFERENTIAL Stat 05/02/2009 5:00 AM CDT documented in this encounter Results * (ABNORMAL) CBC WITH DIFFERENTIAL (05/02/2009 5:00 AM CDT) RDW-STDEV 42.4 37.1 - 48.7 fL [facility] RBC 3.99 3.90 - 4.90 M/uL [facility] MCHC 32.8 31.5 - 35.5 % [facility] MCV 87.2 82.0 - 99.0 fL [facility] PLATELETS 269 140 - 350 K/uL [facility] HEMOGLOBIN 11.4(L) 11.8 - 14.8 g/dL [facility] RDW 13.2 11.5 - 14.5 % [facility] WBC 12.3(H) 4.0 - 9.8 K/uL [facility] MCH 28.6 27.2 - 32.6 pg [facility] MPV 9.8 9.3 - 12.4 fL [facility] HEMATOCRIT 34.8(L) 35.5 - 44.0 % [facility] EOSINOPHILS 0 0 - 7 % [facility] EOSINOPHIL ABSOLUTE 0.03 0.00 - 0.70 K/uL [facility] LYMPHOCYTES 14(L) 16 - 45 % [facility] LYMPHOCYTE ABSOLUTE 1.67 0.70 - 4.50 K/uL [facility] BASOPHILS 0 0 - 2 % [facility] BASOPHILS ABSOLUTE 0.01 0.00 - 0.20 K/uL [facility] MONOCYTES 9 3 - 13 % [facility] MONOCYTE ABSOLUTE 1.05 0.10 - 1.30 K/uL [facility] NEUTROPHILS 78(H) 45 - 70 % [facility] NEUTROPHIL ABSOLUTE 9.55(H) 1.90 - 7.00 K/uL [facility] Blood specimen (specimen) 05/02/2009 5:00 AM CDT 05/02/2009 6:17 AM CDT us Brady Carr MD HEMATOLOGY ORDERABLES Edite d [facility] CLIA# [id number] [address] [place] [place] [address] documented in this encounter Visit Diagnoses Diagnosis Other and unspecified ovarian cyst documented in this encounter Care Teams Nurse Receptionist Relationship Specialty Start Date End Date Stephanie Corey MD PCP - General Family Practice 02/17/11 documented as of this encounter
--- OUTSIDE RECORDS SUMMARY | 2025-07-25 09:43 | XMS_ITS | Encounter Summary ---
Author Organization [email or web address] Address 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 Gender Identity Not on file Sexual Orientation Not on file documented as of this encounter Plan of Treatment Not on file documented as of this encounter Procedures Procedure Name Priority Date/Time Associated Diagnosis Comments CBC WITH DIFFERENTIAL Stat 05/01/2009 6:00 PM CDT documented in this encounter Results * (ABNORMAL) CBC WITH DIFFERENTIAL (05/01/2009 6:00 PM CDT) MCV 86.6 82.0 - 99.0 fL [facility] [place] [place] [facility] PLATELETS 276 140 - 350 K/uL [facility] [place] [place] [facility] HEMOGLOBIN 12.0 11.8 - 14.8 g/dL [facility] [place] [place] [facility] RDW 13.2 11.5 - 14.5 % [facility] [place] [place] WBC 11.4(H) 4.0 - 9.8 K/uL [facility] [place] [place] [facility] MCH 28.3 27.2 - 32.6 pg [facility] [place] [place] [facility] MPV 9.8 9.3 - 12.4 fL [facility] [place] [place] [facility] HEMATOCRIT 36.7 35.5 - 44.0 % [facility] [place] [place] [facility] RDW-STDEV 41.8 37.1 - 48.7 fL [facility] [place] [place] [facility] RBC 4.24 3.90 - 4.90 M/uL [facility] [place] [place] [facility] MCHC 32.7 31.5 - 35.5 % [facility] [place] [place] [facility] EOSINOPHILS 0 0 - 7 % [facility] EOSINOPHIL ABSOLUTE 0.00 0.00 - 0.70 K/uL [facility] [place] [place] [facility] LYMPHOCYTES 5(L) 16 - 45 % [facility] LYMPHOCYTE ABSOLUTE 0.52(L) 0.70 - 4.50 K/uL [facility] [place] [place] [facility] BASOPHILS 0 0 - 2 % [facility] [place] [place] [facility] BASOPHILS ABSOLUTE 0.00 0.00 - 0.20 K/uL [facility] [place] [place] [facility] MONOCYTES 3 3 - 13 % [facility] [place] [place] [facility] MONOCYTE ABSOLUTE 0.31 0.10 - 1.30 K/uL [facility] [place] [place] [facility] NEUTROPHILS 93(H) 45 - 70 % [facility] NEUTROPHIL ABSOLUTE 10.58(H) 1.90 - 7.00 K/uL [facility] [place] [place] Blood specimen (specimen) 05/01/2009 6:00 PM CDT 05/01/2009 6:55 PM CDT Narrative INTERFACE SYSTEM - 05/01/2009 8:13 PM CDT Results called to Deneen at 05/01/09 20:12 and read back verified. Results faxed. us Brady Carr MD HEMATOLOGY ORDERABLES Edite d INTERFACE SYSTEM Refer to clinic/hospital department [facility] [place] [place] CLIA# [id number] [address] [place] [address] documented in this encounter Visit Diagnoses Diagnosis Other and unspecified ovarian cyst documented in this encounter Care Teams Counter Intelligence Relationship Specialty Start Date End Date Stephanie Corey MD PCP - General Family Practice 02/17/11 documented as of this encounter
--- OUTSIDE RECORDS SUMMARY | 2025-07-25 09:43 | XMS_ITS | Clinical Summary ---
Author Organization [facility] [employer] Address [address] [place] [address] Care Team Providers Care Blood Bank Laboratory Technologist Name Role Phone Stephanie Corey MD Primary Care Provider [phone] Source Comments [facility],non-owned Affiliates and Associated Physician Practices is amultiple site organization consisting of ambulatory clinics and hospital sitesin [place], [place], [place] and [place]. This disclosure is being madepursuant to the Care Everywhere program and may not contain all information available regarding this patient. Last updated 18.[facility] [employer] Allergies Active Allergy Reactions Criticality Noted Date Comments Adhesive Sensitivity 09/03/2016 Medications * Be aware that medications may not be up to date on this document. Alwaysverify current medications with the patient. No known medications Active Problems No known active problems Family History Medical History Relation Name Comments Heart Failure Mother Hypertension Mother Relation Name Status Comments Mother Social History Tobacco Use Types Packs/Day Years Used Date Smoking Tobacco: Never Alcohol Use Standard Drinks/Week Comments Yes 0 (1 standard drink = 0.6 oz pur e alcohol) Comments No Sex and Gender Information Value Date Recorded Sex Assigned at Not on file Legal Sex Female 7:37 AM SANITARY LANDFILL SUPERVISOR Gender Identity Not on file Sexual Orientation Not on file Last Filed Vital Signs Vital Sign Reading Time Taken Comments Blood Pressure 122/87 09/03/2016 7:54 AM SANITARY LANDFILL SUPERVISOR Pulse 96 09/03/2016 7:54 AM SANITARY LANDFILL SUPERVISOR Temperature 36.1 C (97 F) 09/03/2016 7:41 AM SANITARY LANDFILL SUPERVISOR Respiratory Rate 16 09/03/2016 7:54 AM SANITARY LANDFILL SUPERVISOR Oxygen Saturation 100% 09/03/2016 7:54 AM SANITARY LANDFILL SUPERVISOR Inhaled Oxygen Concentration - - Weight 66.2 kg (146 lb) 09/01/2016 4:10 PM SANITARY LANDFILL SUPERVISOR Height 157.5 cm (5' 2) 09/01/2016 4:10 PM SANITARY LANDFILL SUPERVISOR Body Mass Index 26.7 09/01/2016 4:10 PM SANITARY LANDFILL SUPERVISOR Plan of Treatment Health Maintenance Due Date Last Done Comments COLOGUARD (AGES 45-75) - COL ON CA SCREENING 1965 CT COLONOGRAPHY - COLON CA SCREENING 1965 FIT - COLON CA SCREENING 1965 FLEX SIG - COLON CA SCREENING 1965 LIPID TESTING 1965 MAMMOGRAM 1965 HIV SCREENING 1980 HEPATITIS C SCREENING 03/21/1983 DTAP/TDAP/TD VACCINES (1 - Tdap) 1984 PNEUMOCOCCAL VACCINE 50+ (1 of 1 - PCV) 2015 ZOSTER VACCINE (1 of 2) 2015 DEPRESSION SCREENING 09/20/2024 COVID-19 VACCINE (1 - 2023-2 5 season) 2025 INFLUENZA VACCINE (#1) 2025 COLON MONITORING 09/03/2026 09/03/2016, 09/03/2016 COLONOSCOPY - COLON CA SCREENING 09/03/2026 09/03/2016, 09/03/2016 Colorectal Cancer Screening 09/03/2026 Respiratory Syncytial Virus (RSV) Vaccine Pt: or over 60 yrs (1 - 1-dose 75+ series) 2040 HEPATITIS B VACCINE Aged Out No longe r eligible based on patient's age to complete this topic HIB VACCINE Aged Out No longer eligi ble based on patient's age to complete this topic HPV VACCINE Aged Out No longer eligi ble based on patient's age to complete this topic MENINGOCOCCAL (Group B) VACCINE SHARED DECISION-MAKING Aged Out No longer eligible based on patient's age to complete this topic MENINGOCOCCAL GROUPS A/C/Y/W VACCINE Aged Out No longer eligible b ased on patient's age to complete this topic Procedures Procedure Name Priority Date/Time Associated Diagnosis Comments ENDOSCOPY, COLON, SCREENING Routine 09/03/2016 6:54 AM SANITARY LANDFILL SUPERVISOR from Last 3 Months or Most Recently Relevant to Health Maintenance Results * ENDOSCOPY, COLON, SCREENING (09/03/2016 6:54 AM SANITARY LANDFILL SUPERVISOR) Report Endoscopy POC _ Patient Name: Nova Cooper Procedure Date: 09/03/2016 6:54 AM Date of : 1965 Admit Type: Outpatient Age: 51 Gender: Female Attending MD: Joe Dickens MD _ Procedure: Colonoscopy Indications: Screening for colorectal malignant neoplasm, This is the patient's first colonoscopy Providers: Joe Dickens MD (Doctor) Referring MD: Stephanie Corey MD (Referring MD) Medicines: Monitored Anesthesia Care Complications: No immediate complications. _ Procedure: Pre-Anesthesia Assessment: - Prior to the procedure, a History and Physical was performed, and patient medications and allergies were reviewed. The patient is competent. The risks and benefits of the procedure and the sedation options and risks were discussed with the patient. All questions were answered and informed consent was obtained. Patient identification and proposed procedure were verified by the physician in the pre-procedure area. Mental Status Examination: alert and oriented. Airway Examination: normal oropharyngeal airway and neck mobility. Respiratory Examination: clear to auscultation. CV Examination: normal. Prophylactic Antibiotics: The patient does not require prophylactic antibiotics. Prior Anticoagulants: The patient has taken no previous anticoagulant or antiplatelet agents. ASA Grade Assessment: I - A normal, healthy patient. After reviewing the risks and benefits, the patient was deemed in satisfactory condition to undergo the procedure. The anesthesia plan was to use monitored anesthesia care (MAC). Immediately prior to administration of medications, the patient was re-assessed for adequacy to receive sedatives. The heart rate, respiratory rate, oxygen saturations, blood pressure, adequacy of pulmonary ventilation, and response to care were monitored throughout the procedure. The physical status of the patient was re-assessed after the procedure. After I obtained informed consent, the scope was passed under direct vision. Throughout the procedure, the patient's blood pressure, pulse, and oxygen saturations were monitored continuously. The Colonoscope was introduced through the anus and advanced to the cecum, identified by appendiceal orifice and ileocecal valve. The colonoscopy was performed without difficulty. The patient tolerated the procedure well. The quality of the bowel preparation was excellent. Findings: The perianal and digital rectal examinations were normal. Pertinent negatives include no palpable rectal lesions. Non-bleeding internal hemorrhoids were found during retroflexion. The hemorrhoids were moderate. A diffuse area of severe melanosis was found in the entire colon. The exam was otherwise without abnormality. _ Impression: - Non-bleeding internal hemorrhoids. - Melanosis in the colon. - The examination was otherwise normal. - No specimens collected. Recommendation: - Use Citrucel one tablespoon PO daily indefinitely. - Miralax 2 capfuls (34 grams) PO daily indefinitely. - Repeat colonoscopy in 10 years for surveillance. - Return to my office in 4 weeks. - Return to primary care physician as previously scheduled. Stop all stimulant laxatives Procedure Code(s): --- Professional --- G0121, Colorectal cancer screening; colonoscopy on individual not meeting criteria for high risk --- Technical --- G0121, Colorectal cancer screening; colonoscopy on individual not meeting criteria for high risk Diagnosis Code(s): --- Professional --- Z12.11, Encounter for screening for malignant neoplasm of colon K64.8, Other hemorrhoids K63.89, Other specified diseases of intestine --- Technical --- Z12.11, Encounter for screening for malignant neoplasm of colon K64.8, Other hemorrhoids K63.89, Other specified diseases of intestine CPT copyright 2015 [employer]. All rights reserved. The codes documented in this report are preliminary and upon inspector wire rope review may be revised to meet current compliance requirements. Dr. Joe Dickens MD ___ Joe Dickens MD 09/03/2016 7:43:29 AM This report has been signed electronically. Number of Addenda: 0 Note Initiated On: 09/03/2016 6:54 AM DP ENDOSCOPY 09/03/2016 6:54 AM SANITARY LANDFILL SUPERVISOR us Joe Dickens MD GI PROCEDURE ORDERABLES Mariusz jordyn Result - Final [facility] [place] [address] from Last 3 Months or Most Recently Relevant to Health Maintenance Insurance [employer] [facility] [place] [address] Care Teams Blood Bank Laboratory Technologist Relationship Specialty Start Date End Date Stephanie Corey MD [address] [place] [id number] PCP - General 06/10/20
--- OUTSIDE RECORDS SUMMARY | 2025-07-25 09:43 | XMS_ITS | Clinical Summary ---
Author Organization [facility] Address [address] [place] [address] Phone Care Team Providers Care Summer Intern Name Role Phone Stephanie Corey MD Primary Care Provider [phone] Allergies Active Allergy Reactions Criticality Noted Date Comments Adhesive Tape-Silicones Rash Low 02/23/2011 Medications calcium citrate-Vitamin D3 200-200 mg-unit Oral Tab Take by mouth. Activ e Cholecalciferol , Vitamin D3, 1,000 unit Oral Tab Take by mouth. Activ e Chromium Picolinate 200 mcg Oral Cap Take by mouth. Ac tive sertraline (ZOLOFT) 50 mg Oral tablet Take 50 mg by mouth Daily LATE. 1 Active montelukast (SINGULAIR) 10 mg Oral tablet Take 10 mg by mouth daily at bedtime. Active cetirizine (ZYRTEC) 10 mg Oral tablet Take 10 mg by mouth Daily LATE. 1 Active fluticasone-chari meterol (ADVAIR DISKUS) 100-50 mcg/dose Inhalation DsDv Take 1 Puff by inhalation 2 times daily. Active HYDROcodone-sanjay taminophen (LORTAB) 5-500 mg Oral tablet Take 1 Tab by mouth every 4 hours as needed for Pain. 40 Tab 0 1 Active ibuprofen (MOTRIN) 600 mg Oral tablet Take 1 Tab by mouth every 6 hours as needed for Pain. 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 Gender Identity Not on file Sexual Orientation Not on file Last Filed Vital Signs Vital Sign Reading Time Taken Comments Blood Pressure 103/69 03/02/2011 3:03 PM CDT Pulse 69 03/02/2011 3:03 PM CDT Temperature 36.9 C (98.5 F) 03/02/2011 3:03 PM CDT Respiratory Rate 18 03/02/2011 3:03 PM CDT Oxygen Saturation 93% 03/02/2011 3:03 PM CDT Inhaled Oxygen Concentration - - Weight 68.8 kg (151 lb 9.6 oz) 03/02/2011 8:54 A M CDT Height 157.5 cm (5' 2) 02/23/2011 8:55 AM CDT Body Mass Index 27.73 02/23/2011 8:55 AM CDT Plan of Treatment Health Maintenance Due Date Last Done Comments DTAP/TDAP/TD VACCINES (1 - Tdap) 1984 HPV/Cotest (21-29) 1986 CERVICAL CANCER SCREENING 1995 HPV/Cotest (30-65) 1995 PAP SMEAR 1995 BREAST CANCER SCREENING 2005 COLORECTAL SCREENING 2010 Colorectal Cancer Screening 2010 FIT-DNA Q 3 years 2010 FIT/FOBT Q 1 year 2010 Flex Sig/CT Colonography Q 5 years 2010 ZOSTER VACCINE (1 of 2) 2015 INFLUENZA VACCINE (#1) 2025 RSV VACCINE (60+ or ) (1 - 1-dose 75+ series) 2040 HEPATITIS B VACCINES Aged Out No long er eligible based on patient's age to complete this topic Advance Directives For more information, please contact: [phone] * Full Code (Latest Code Status on File) Date Activated Date Inactivated Comments 03/02/2011 11:08 AM 03/02/2011 5:24 PM * Full Code Date Activated Date Inactivated Comments 03/02/2011 9:14 AM 03/02/2011 11:08 AM * Full Code Date Activated Date Inactivated Comments 03/02/2011 8:54 AM 03/02/2011 9:14 AM Care Teams Summer Intern Relationship Specialty Start Date End Date Stephanie Corey MD PCP - General Family Practice 02/17/11
--- OUTSIDE RECORDS SUMMARY | 2025-07-25 09:43 | XMS_ITS | Clinical Summary ---
Author Organization [facility] Address [address] [place] [address] Care Team Providers Care Horticulture Teacher Name Role Phone Stephanie Corey MD Primary Care Provider + Allergies Active Allergy Reactions Criticality Noted Date Comments Adhesive Tape-Silicones Rash,Blisters High 7 Medications ADVAIR DISKUS 500-50 mcg/dose diskus inhaler 03/08/2017 Acti ve SYNTHROID 75 mcg tablet 05/25/2017 Active albuterol HFA (PROVENTIL HFA,VENTOLIN HFA,PROAIR HFA) 90 mcg/actuation inhaler Inhale 2 puffs every 6 (six) hours as needed for wheezing Active Active Problems Problem Noted Date Diagnosed Date Other chest pain 09/10/2023 SWAPNA (obstructive sleep apnea) 09/10/2023 Mixed hyperlipidemia 09/10/2023 Elevated blood pressure reading 09/10/2023 Bilateral primary osteoarthritis of knee 017 Surgical History Surgery Date Site/Laterality Comments KNEE SURGERY FOOT SURGERY HYSTERECTOMY Medical History Medical History Date Comments Asthma Kidney stone Anemia Chest pain Carpal tunnel syndrome Family History Medical History Relation Name Comments ALS Father Hypertension Father Atrial fibrillation Mother Diabetes Mother Heart failure Mother Hypertension Mother Stroke Mother parkinsons disease Mother Cancer Other Hypertension Other Stroke Other Relation Name Status Comments Father Mother Other Social History Tobacco Use Types Packs/Day Years Used Date Smoking Tobacco: Never Smokeless Tobacco: Never Tobacco Cessation:Counseling Given: Not Answered Alcohol Use Standard Drinks/Week Comments Yes 0 (1 standard drink = 0.6 oz pur e alcohol) Personal Safety Answer Date Recorded Getting School Help Needed Not on file 09/08 Comments Unknown Sex and Gender Information Value Date Recorded Sex Assigned at Not on file Legal Sex Female 1:03 PM PRECISION ASSEMBLER BENCH Gender Identity Not on file Sexual Orientation Not on file Last Filed Vital Signs Vital Sign Reading Time Taken Comments Blood Pressure 120/76 09/10/2023 9:05 AM PRECISION ASSEMBLER BENCH Pulse 95 09/10/2023 9:05 AM PRECISION ASSEMBLER BENCH Temperature - - Respiratory Rate - - Oxygen Saturation 98% 09/10/2023 9:05 AM PRECISION ASSEMBLER BENCH Inhaled Oxygen Concentration - - Weight 77.2 kg (170 lb 4.8 oz) 09/10/2023 9:05 A M PRECISION ASSEMBLER BENCH Height 154.9 cm (5' 1) 09/10/2023 9:05 AM PRECISION ASSEMBLER BENCH Body Mass Index 32.18 09/10/2023 9:05 AM PRECISION ASSEMBLER BENCH Plan of Treatment Health Maintenance Due Date Last Done Comments Breast Cancer Screening-Mammogram 1965 Colon Cancer Screening-Colonoscopy 1965 Depression Screening 1965 Hepatitis C Screening 1965 Hepatitis B Screening 1983 Regular Well Visit/Exam 18-64 1983 Zoster Vaccine (1 of 2) 2015 Influenza Vaccine (#1) 2025 DTaP/Tdap/Td Vaccine (3 - Td or Tdap) 07/21/2028 07/21/2018, 04/05/2018 Pneumococcal vaccine <65 Aged Out No longer eligible based on patient's age to complete this topic Insurance [facility] [employer] [facility] Care Teams Horticulture Teacher Relationship Specialty Start Date End Date Stephanie Corey MD PCP - General Family Medicine 05/28/17
== END 2025-07-25 09:11 | disposition home or self-care (01) ==
LOC: CHSIMG 09:10
PROVIDERS: PCP Family Medicine; Visit Provider Family Medicine
DX: Z12.31 Encounter for screening mammogram for malignant neoplasm of breast (principal)
CPT/HCPCS: 77063; 77067

== ENCOUNTER 2025-08-02 09:47 | Outpatient (CLI) | payer OTHER, SELFPAY ==
--- NOTE | ~2025-08-02 | US_ITS ---
EXAMINATION: US abdomen complete, 08/02/2025 9:48 TRIAL JUDGE HISTORY: R10.11 - Right upper quadrant pain COMPARISON: Comparison CT 01/28/2015. Technique: Swann-scale and color Doppler images were obtained. Findings: LIVER: Mild increased echogenicity of the liver. . GALLBLADDER/BILIARY: Unremarkable.No cholelithiais, wall thickening or pericholecystic fluid. No biliary dilatation. CBD 4 mm. [place] sign negative. PANCREAS: Pancreas limited by bowel gas. SPLEEN: Unremarkable, no splenomegaly. KIDNEYS: The renal cortices are intact with no hydronephrosis. Right Kidney: Right kidney 10.6 x 3.7 x 4 cm. Right kidney mid to superior pole echogenic focus measures 10 x 5 mm without posterior shadowing. Left Kidney: Left kidney 10.4 x 3.8 x 5.2 cm. AORTA: Normal caliber aorta. IVC: Unremarkable. FREE FLUID: None. Impression: 1. Echogenic right renal lesion possible noncalcified calculus or angiomyolipoma. Other etiologies are not excluded. This finding appears new compared to the previous CT 01/28/2015. CT suggested to further evaluate. Reviewed, dictated and finalized at location P. L JUDGE Impression: 1. Echogenic right renal lesion possible noncalcified calculus or angiomyolipom a. Other etiologies are not excluded. This finding appears new compared to the previous CT 01/28/2015. CT suggested to further evaluate.
== END 2025-08-02 09:48 | disposition home or self-care (01) ==
LOC: GOSHIMG 09:47
PROVIDERS: PCP Family Medicine; Visit Provider Family Medicine
DX: R10.11 Right upper quadrant pain (principal); R10.A1 Flank pain, right side
CPT/HCPCS: 76700

== ENCOUNTER 2025-08-21 11:05 | Outpatient (CLI) | payer OTHER, SELFPAY ==
--- NOTE | ~2025-08-21 | CT_ITS ---
EXAMINATION: CT abdomen pelvis w con DATE: 08/21/2025 11:40 INDICATION: Right upper quadrant abdominal pain. TECHNIQUE: Computed tomography (CT) of the abdomen and pelvis was performed with 100 mL Omnipaque 350 intravenous contrast. Automated exposure control and iterative reconstruction technique were employed. The dose-length product was 688.65 mGy-cm. COMPARISON: CT abdomen and pelvis 11/08/2015 FINDINGS: The visualized portions of the lung bases demonstrate mild atelectasis. No pleural effusion. The heart size is normal. No pericardial effusion. There is a small sliding hiatal hernia. The liver, gallbladder, spleen, pancreas, adrenal glands, and kidneys are normal. There is diverticulosis of the colon without evidence of diverticulitis. There is a large volume of stool in the colon. There is fat stranding in right upper quadrant adjacent to the hepatic flexure of the colon. The appendix is normal. There are no pathologically enlarged lymph nodes. There is no free intraperitoneal fluid. There is mild thoracic and lumbar spondylosis. IMPRESSION: 1. Fat stranding adjacent to the hepatic flexure of the colon, likely fat necrosis. 2. Small sliding hiatal hernia. Reviewed, dictated and finalized at location E. RTISING CLERK IMPRESSION: 1. Fat stranding adjacent to the hepatic flexure of the colon, likely fat necro sis. 2. Small sliding hiatal hernia.
[2025-08-21 11:27] LABS: Estimated Glomerular Filt Rate > 60
== END 2025-08-21 11:06 | disposition home or self-care (01) ==
LOC: MICIMG 11:06
PROVIDERS: PCP Family Medicine; Visit Provider Student in an Organized Health Care Education/Training Program
DX: K44.9 Diaphragmatic hernia without obstruction or gangrene (principal)
CPT/HCPCS: 74177; Q9967